=== PATIENT | female | born 1945 | race Caucasian/White ===

== ENCOUNTER 2017-11-20 13:20 | Emergency (ER) | payer MEDICARE, BC ==
--- NOTE | 2017-11-20 14:15 | EDM.PDOC ---
ED HPI GENERAL MEDICAL PROBLEM - General Chief Complaint: Abdominal Pain Stated Complaint: ABD PAIN Time Seen by Provider: 11/20/17 13:45 Source of Information: Reports: Patient, Family History Limitations: Reports: No Limitations - History of Present Illness INITIAL COMMENTS - FREE TEXT/NARRATIVE: Cayla presents today for complaints of LUQ, LLA and left lateral pain for 3 days. She reports she tried taking advil and it did not help. She denies diarrhea, constipation, difficulty urinating or other concerns. She denies use of alcohol, tobacco. She is exposed to second hand smoke in her home. 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: Musculoskeletal History: Reports: Back Pain, Chronic - Infectious Disease History Infectious Disease History: Reports: Chicken Pox, Measles, Mumps - Past Surgical History Head Surgeries/Procedures: Reports: None HEENT Surgical History: Reports: LASIK Cardiovascular Surgical History: Reports: None Respiratory Surgical History: Reports: None GI Surgical History: Reports: Colonoscopy Musculoskeletal Surgical History: Reports: None Dermatological Surgical History: Reports: None Social & Family History - Tobacco Use Smoking Status *Q: Never Smoker Used Tobacco, but Quit: No Second Hand Smoke Exposure: No - Caffeine Use Caffeine Use: Reports: Coffee - Recreational Drug Use Recreational Drug Use: No ED ROS GENERAL - Review of Systems Review Of Systems: See Below Constitutional: Denies: Fever, Chills, Malaise, Weakness HEENT: Reports: No Symptoms Respiratory: Reports: No Symptoms Cardiovascular: Reports: No Symptoms Endocrine: Reports: No Symptoms GI/Abdominal: Reports: Abdominal Pain, Other (She complains fo LUQ, LLQ and left lateral pain for 3 days. ). Denies: Black Stool, Bloody Stool, Constipation, Diarrhea, Decreased Appetite, Distension, Hematemesis, Hematochezia, Nausea, Vomiting : Reports: No Symptoms Musculoskeletal: Reports: No Symptoms Skin: Reports: No Symptoms Neurological: Reports: No Symptoms Psychiatric: Reports: No Symptoms Hematologic/Lymphatic: Reports: No Symptoms Immunologic: Reports: No Symptoms Free Text/Narrative/Comment: She denies past of surgical procedures. ED EXAM, GI/ABD - Physical Exam Exam: See Below Text/Narrative:: Cayla is an alert and oriented 72 year old female presenting with complaints of left sided abdominal pain for three days. Exam Limited By: No Limitations General Appearance: Alert, WD/WN, Mild Distress Eyes: Bilateral: Normal Appearance, EOMI Ears: Normal External Exam, Normal Canal, Hearing Grossly Normal, Normal TMs Nose: Normal Inspection, Normal Mucosa, No Blood Throat/Mouth: Normal Inspection, Normal Lips, Normal Gums, Normal Oropharynx, Normal Voice, No Airway Compromise Head: Atraumatic, Normocephalic Neck: Normal Inspection, Supple, Non-Tender, Full Range of Motion Respiratory/Chest: No Respiratory Distress, Lungs Clear, No Accessory Muscle Use , Chest Non-Tender, Decreased Breath Sounds, Other (History of COPD - controlled at this time. ) Cardiovascular: Normal Peripheral Pulses, Regular Rate, Rhythm, No Edema, No Murmur, No Rub GI/Abdominal Exam: Normal Bowel Sounds, Soft, No Organomegaly, No Distention, No Mass, Tender, Other (Tender to epigastric, LUQ, LLQ wit palpation. ). No: Guarding, Rigid, Rebound, Mass Back Exam: Normal Inspection, Full Range of Motion. No: CVA Tenderness (R), CVA Tenderness (L) Extremities: Normal Inspection, Normal Range of Motion, Non-Tender, No Pedal Edema, Normal Capillary Refill Neurological: Alert, Oriented, CN II-XII Intact, Normal Cognition, Normal Gait, Normal Reflexes, No Motor/Sensory Deficits Psychiatric: Normal Affect, Normal Mood Skin Exam: Warm, Dry, Intact, Normal Color, No Rash Lymphatic: No Adenopathy Course - Vital Signs Last Recorded V/S: Last Vital Signs Temp 35.4 C 11/20/17 13:43 Pulse 84 11/20/17 13:43 Resp 16 11/20/17 13:43 BP 176/83 H 11/20/17 13:43 Pulse Ox 95 11/20/17 13:43 - Orders/Labs/Meds Orders: Active Orders 24 hr Category Date Time Status Abdomen Pelvis wo Cont [CT] Stat Exams 11/20/17 15:03 Taken Sodium Chloride 0.9% [Normal Saline] 1,000 ml Med 11/20/17 15:15 Active IV ASDIRECTED Sodium Chloride 0.9% [Saline Flush] Med 11/20/17 15:03 Active 10 ml FLUSH ASDIRECTED PRN Saline Lock Insert [OM.PC] Routine Oth 11/20/17 15:03 Ordered Medication Orders Sodium Chloride (Normal Saline) 1,000 mls @ 1,000 mls/hr IV ASDIRECTED JAKE Last Admin: 11/20/17 15:30 Dose: 1,000 mls/hr Sodium Chloride (Saline Flush) 10 ml FLUSH ASDIRECTED PRN PRN Reason: Keep Vein Open Last Admin: 11/20/17 15:30 Dose: 10 ml Labs: Laboratory Tests 11/20/17 11/20/17 11/20/17 Range/Units 14:19 14:19 14:32 WBC 6.4 (4.5-11.0) K/uL RBC 5.03 (3.30-5.50) M/uL Hgb 14.6 (12.0-15.0) g/dL Hct 44.4 (36.0-48.0) % MCV 88 (80-98) fL MCH 29 (27-31) pg MCHC 33 (32-36) % Plt Count 202 (150-400) K/uL Neut % (Auto) 61 (36-66) % Lymph % (Auto) 29 (24-44) % [place] % (Auto) 9 H (2-6) % Eos % (Auto) 1 L (2-4) % Baso % (Auto) 0 (0-1) % ESR 15 (0-25) mm/hr Sodium 141 (140-148) mmol/L Potassium 3.9 (3.6-5.2) mmol/L Chloride 104 (100-108) mmol/L Carbon Dioxide 28 (21-32) mmol/L Anion Gap 9.5 (5.0-14.0) mmol/L BUN 14 (7-18) mg/dL Creatinine 0.8 (0.6-1.0) mg/dL Est Cr Clr Drug Dosing 55.68 mL/min Estimated GFR (MDRD) > 60 (>60) Glucose 90 (74-106) mg/dL Calcium 9.0 (8.5-10.1) mg/dL Total Bilirubin 0.5 (0.2-1.0) mg/dL AST 10 L (15-37) U/L ALT 24 (12-78) U/L Alkaline Phosphatase 101 (46-116) U/L C-Reactive Protein 1.19 H (0.0-0.3) mg/dL Total Protein 7.0 (6.4-8.2) g/dL Albumin 3.5 (3.4-5.0) g/dL Globulin 3.5 (2.3-3.5) g/dL Albumin/Globulin Ratio 1.0 L (1.2-2.2) Urine Color Yellow Urine Appearance Slightly cloudy Urine pH 5.0 (4.5-8.0) Ur Specific [place] 1.015 (1.008-1.030) Urine Protein Negative (NEGATIVE) mg/dL Urine Glucose (UA) Normal (NEGATIVE) mg/dL Urine Ketones 15 H (NEGATIVE) mg/dL Urine Occult Blood Negative (NEGATIVE) Urine Nitrite Negative (NEGATIVE) Urine Bilirubin Negative (NEGATIVE) Urine Urobilinogen Normal (NORMAL) mg/dL Ur Leukocyte Esterase Moderate (NEGATIVE) Urine RBC Not seen (0-5) Urine WBC 5-10 H (0-5) Ur Epithelial Cells Not seen Amorphous Sediment Rare Urine Bacteria Rare Urine Mucus Not seen Patient lab work reviewed with her. All her questions answered. Patient has an allergy to IV contrast, we will do a CT without contrast of the abdomen/pelvis. Meds: Medications Generic Name Dose Route Start Last Admin Trade Name Freq PRN Reason Stop Dose Admin Sodium Chloride 1,000 mls @ 1,000 mls/hr 11/20/17 15:15 11/20/17 15:30 Normal Saline IV 1,000 mls/hr ASDIRECTED JAKE Administration Sodium Chloride 10 ml 11/20/17 15:03 11/20/17 15:30 Saline Flush FLUSH 10 ml ASDIRECTED PRN Administration Keep Vein Open Discontinued Medications Generic Name Dose Route Start Last Admin Trade Name Freq PRN Reason Stop Dose Admin Ketorolac Tromethamine 30 mg 11/20/17 15:55 11/20/17 16:01 Toradol IVPUSH 11/20/17 15:56 30 mg ONETIME ONE Administration - Radiology Interpretation CT Results Date: 11/20/17 (CT abdomen and pelvis impression: Epiploic appendagitis noted within the ventral abdomen just left of midline. Scattered reticulonodular opacities throughout the imaged lungs. ) - Re-Assessments/Exams Free Text/Narrative Re-Assessment/Exam: 11/20/17 15:25 CT scan findings discussed with Dr. Diego. No infectious process noted at this time. Cayla will be given Toradol 30mg IV, complete NS 1000ml fluid bolus and be discharged to home. Patient in agreement with plan. Departure - Departure Time of Disposition: 16:31 Disposition: Home, Self-Care 01 Condition: Good Clinical Impression: Epiploic appendagitis - Discharge Information *PRESCRIPTION DRUG MONITORING PROGRAM REVIEWED*: No *COPY OF PRESCRIPTION DRUG MONITORING REPORT IN PATIENT ROSE MARY: No Instructions: Abdominal Pain, Adult, [id number] Referrals: PCP,None [Primary Care Provider] - Forms: ED Department Discharge Additional Instructions: You have been evaluated and treated for abdominal pain. CT scan showed epiploic appendagitis. The best management is acetaminophen and ibuprofen for pain. Keep yourself hydrated. Follow up with your primary provider in 3 to 5 days for a recheck. Return for worsening, uncontrolled pain, fever, chills or any other concerns. - My Orders Last 24 Hours: My Active Orders 11/20/17 15:03 Abdomen Pelvis wo Cont [CT] Stat Sodium Chloride 0.9% [Saline Flush] 10 ml FLUSH ASDIRECTED PRN Saline Lock Insert [OM.PC] Routine 11/20/17 15:15 Sodium Chloride 0.9% [Normal Saline] 1,000 ml IV ASDIRECTED - Assessment/Plan Last 24 Hours: My Active Orders 11/20/17 15:03 Abdomen Pelvis wo Cont [CT] Stat Sodium Chloride 0.9% [Saline Flush] 10 ml FLUSH ASDIRECTED PRN Saline Lock Insert [OM.PC] Routine 11/20/17 15:15 Sodium Chloride 0.9% [Normal Saline] 1,000 ml IV ASDIRECTED Assessment:: Epiploic appendagitis. Plan: Patient evaluated and treated for abdominal pain. CT scan showed epiploic appendagitis. The best management is acetaminophen and ibuprofen for pain. Keep hydrated. Follow up with primary provider in 3 to 5 days for a recheck. Return for worsening, uncontrolled pain, fever, chills or any other concerns.
[2017-11-20] MEDS ORDERED: Sodium Chloride 0.9% 10 ML Syringe FLUSH PRN (15:03)
[2017-11-20] MEDS ORDERED: Sodium Chloride 0.9% 1,000 ML IV SCH (15:15)
[2017-11-20] MEDS ORDERED: Ketorolac 30 MG/ML SDV IVPUSH ONE (15:55)
== END 2017-11-20 16:48 | disposition home or self-care (01) ==
LOC: JP.ED 13:20
DX: K63.89 Other specified diseases of intestine (principal); Z88.2 Allergy status to sulfonamides
CPT/HCPCS: 36415; 74176; 80053; 81001; 85025; 85651; 86140; 96361; 96374; 99284; J1885; J7030; J7050